=== PATIENT | male | born 1990 | race Caucasian/White ===

== ENCOUNTER → 2019-01-23 | Outpatient (CLI) | payer OTHER ==
--- NOTE | 2019-01-23 13:23 | Diagnostic Imaging Report ---
INDICATION: Twisted injury to left ankle at work, pain. TECHNIQUE: Three views of the left ankle CORRELATION STUDY: None FINDINGS: The bony alignment is anatomic. The talar dome is intact. The ankle mortise is maintained. There is no acute fracture or dislocation. Soft tissue swelling is present. IMPRESSION: Negative for acute bony abnormality of the ankle. Prominent soft tissue swelling over the hindfoot. Dictated by: Dictated on workstation # [id number]
== END ==
LOC: RAD FS 13:03
PROVIDERS: ATTEND Nurse Practitioner Family
DX: S99.912A Unspecified injury of left ankle, initial encounter (principal)
CPT/HCPCS: 73610

== ENCOUNTER 2019-04-10 07:58 | Emergency (ER) | payer SELFPAY ==
[~2019-04-10] VITALS: Ht 188 cm; Wt 172.4 kg
--- NOTE | 2019-04-10 08:39 | ED Abdominal Pain ---
General Chief Complaint: Abdominal/GI Problems Stated Complaint: NAUSEA & GENERAL WEAKNESS Nursing Triage Note: PT REPORTS HE WORKS AT [email or web address] AND IT WAS HOT IN THERE YESTERDAY DESPITE HIM DRINKING PLENTY OF FLUIDS. HE REPORTS NAUSEA THIS AM WHEN HE WENT TO WORK. Sepsis Screen: No Definite Risk Source of Information: Patient History of Present Illness Date Seen by Provider: Apr 10, 2019 Time Seen by Provider: 08:15 Initial Comments Patient is a 28-year-old male who presents with dizziness and nausea while at work. Patient works in [id number] with an index greater than 105 yesterday. Patient reports feeling dizzy yesterday at work. However, upon returning to work this morning, patient felt nauseated. Denies headache, change in vision and syncope. No chest pain, palpitations or abdominal pain. No other acute symptoms or complaints. Timing/Duration: 12-24 Hours Severity/Quality: Moderate Activities at Onset: None Associated Symptoms: Denies Symptoms Allergies and Home Medications Patient Home Medication List Home Medication List Reviewed: Yes Review of Systems Review of Systems Constitutional: see HPI EENTM: See HPI Respiratory: See HPI Cardiovascular: See HPI Gastrointestinal: See HPI Genitourinary: See HPI Musculoskeletal: see HPI Skin: see HPI Psychiatric/Neurological: See HPI Endocrine: See HPI Hematologic/Lymphatic: See HPI Past Oicmkct-Iygckb-Valenw Hx Patient Social History Alcohol Use: Denies Use Recreational Drug Use: No Smoking Status: Never a Smoker 2nd Hand Smoke Exposure: No Recent Foreign Travel: No Contact w/Someone Who Travel: No Recent Infectious Disease Expo: No Recent Hopitalizations: No Physical Abuse: No Sexual Abuse: No Mistreated: No Fear: No Seasonal Allergies Seasonal Allergies: No Past Medical History Surgeries: No Respiratory: No Cardiac: No Neurological: No Genitourinary: No Gastrointestinal: Yes Crohns Disease Musculoskeletal: No Endocrine: No HEENT: No Cancer: No Psychosocial: No Integumentary: No Blood Disorders: No Physical Exam Vital Signs Vital Signs - First Documented 04/10/19 08:12 Temp 97.7 Pulse 72 Resp 18 B/P (MAP) 145/90 (108) O2 Delivery Room Air Capillary Refill : Less Than 3 Seconds Height/Weight/BMI Height: 6'2.00" Weight: 380lbs. oz. 172.251248tb; BMI Method:Stated General Appearance: WD/WN, no apparent distress HEENT: PERRL/EOMI, normal ENT inspection Neck: non-tender, supple Respiratory: chest non-tender, lungs clear Cardiovascular: normal peripheral pulses, regular rate, rhythm Gastrointestinal: non tender, soft Skin: normal color Focused Exam Sepsis Stage: Ruled Out Progress/Results/Core Measures Results/Orders Vital Signs/I&O 04/10/19 08:12 Temp 97.7 Pulse 72 Resp 18 B/P (MAP) 145/90 (108) O2 Delivery Room Air Blood Pressure Mean: 108 Departure Communication (Admissions) Symptoms consistent with heat-related illness. Vital signs stable. Patient reports good urine output. Recommendations are staying in the cold air conditioning environment the next 2 days. Patient has nausea medication available to him at home. Curtesy work note provided. Impression Primary Impression: Nausea alone Additional Impression: Heat exhaustion Disposition: 01 HOME, SELF-CARE Condition: Stable Departure-Patient Inst. Decision time for Depature: 08:38 Referrals: TY HOWARD DO (PCP/Family) Primary Care Physician Patient Instructions: Heat Exhaustion and Heat Stroke (DC) Add. Discharge Instructions: Please go home and rest and stay in a cool air conditioned environment for the next 2 days. Follow-up with your PCP as needed. Return to ED if new or worsening symptoms. All discharge instructions reviewed with patient and/or family. Voiced understanding. ANGEL MELVIN DO Apr 10, 2019 08:39
[2019-04-10 08:47] VITALS: BP 139/94
== END 2019-04-10 08:45 | disposition home or self-care (01) ==
LOC: EDUNIT# 07:58 → ER FS 07:59
DX: T67.5XXA Heat exhaustion, unspecified, initial encounter (principal); R11.0 Nausea; Z87.19 Personal history of other diseases of the digestive system
CPT/HCPCS: 99282